=== PATIENT | male | born 1980 | race Caucasian/White ===

== ENCOUNTER 2022-06-04 20:18 | Emergency (ER) | payer MEDICAID ==
[~2022-06-04] VITALS: Ht 165.1 cm; Wt 81.0 kg
[~2022-06-04 20:18] MED LIST: COR3 PO; FURO-151 MT; FURO40TA5 PO; LOSA25TA3 PO; POTA-189 PO; POTA-205 MT
[2022-06-04 21:52] VITALS: BP 102/77
[2022-06-05] MEDS ORDERED: FUROSEMIDE 40MG TABLET PO ONE (00:30)
[2022-06-05] MEDS ORDERED: FURO40TA5 MT (02:42)
== END 2022-06-05 03:05 | disposition home or self-care (01) ==
LOC: ER 20:18
DX: I50.9 Heart failure, unspecified (principal); F14.10 Cocaine abuse, uncomplicated; Z79.899 Other long term (current) drug therapy
CPT/HCPCS: 71045; 93005; 99283

== ENCOUNTER 2022-06-29 13:46 | Inpatient (IN) | payer SELFPAY ==
[~2022-06-29] VITALS: Ht 167.6 cm; Wt 86.2 kg
[~2022-06-29 13:46] MED LIST changes: +FURO40TA5 MT
[2022-06-29 19:02] LABS: BASOPHILS % 0.9 % (0.0-2.0); EOSINOPHILS % 2.5 % (0.0-5.0); HEMATOCRIT. 47.1 % (42.0-52.0); HEMOGLOBIN. 15.3 g/dL (14.0-18.0); LYMPHOCYTES % 17.3 % (20.0-50.0); MEAN CORPUSCULAR HEMOGLOBIN 27.2 pg (28.0-32.0); MEAN PLATELET VOLUME 7.8 fl (7.4-10.4); MONOCYTES % 12.7 % (2.0-8.0); NEUTROPHILS % 66.6 % (40.0-76.0); PLATELET 252 x1000/uL (130-400); RED BLOOD CELL COUNT 5.61 mill/uL (4.7-6.1); RED CELL DISTRIBUTION WIDTH 17.9 % (11.6-14.6)
[2022-06-29 19:08] LABS: CHLORIDE 101 mEq/L (98-107)
[2022-06-29 19:23] LABS: ETHANOL BLOOD < 10 mg/dL
[2022-06-29] MEDS ORDERED: FUROSEMIDE 40MG/4ML VIAL IVP NR (19:30)
[2022-06-29] MEDS ORDERED: POTASSIUM CHLORIDE 20MEQ TABLET SR PO NR (19:45)
[2022-06-29 20:01] LABS: INR 1.1; PROTHROMBIN TIME 12.1 sec (9.6-11.0)
[2022-06-30 04:40] LABS: *AMPHETAMINES SCREEN URINE NEGATIVE (NEGATIVE); *BARBITURATES SCREEN URINE NEGATIVE (NEGATIVE); *BENZODIAZEPINES SCREEN URINE NEGATIVE (NEGATIVE); *COCAINE SCREEN URINE NEGATIVE (NEGATIVE); CANNABINOID URINE SCREEN NEGATIVE (NEGATIVE); METHADONE URINE SCREEN NEGATIVE (NEGATIVE); OPIATES URINE SCREEN NEGATIVE (NEGATIVE); PHENCYCLIDINE URINE SCREEN NEGATIVE (NEGATIVE)
[2022-06-30 09:40] VITALS: BP 109/80
[2022-06-30] MEDS ORDERED: ONDANSETRON HCL 4MG/2ML INJ IV PRN (09:45)
[2022-06-30 12:00] VITALS: BP_SYST 114; BP_SYST 118; BP_DIAS 78; BP_DIAS 80
[2022-06-30] MEDS ORDERED: METOLAZONE 2.5MG TABLET PO NR (13:00)
[2022-06-30] MEDS: FUROSEMIDE 100MG/10ML VIAL IVP SCH ×2 (13:18→18:03)
[2022-06-30] MEDS: POTASSIUM CHLORIDE 20MEQ TABLET SR PO SCH (13:18)
[2022-06-30 14:00] VITALS: BP 116/80
[2022-06-30 16:00] VITALS: BP 117/75
[2022-06-30 18:00] VITALS: BP 118/79
[2022-06-30 20:00] VITALS: BP 115/82
[2022-06-30] MEDS: CARVEDILOL 3.125 MG TABLET PO SCH (20:58)
[2022-07-01] VITALS: BP 140/88
[2022-07-01 04:00] VITALS: BP 127/79
[2022-07-01 08:00] VITALS: BP 123/77
[2022-07-01] MEDS: POTASSIUM CHLORIDE 20MEQ TABLET SR PO SCH (09:24)
[2022-07-01] MEDS: CARVEDILOL 3.125 MG TABLET PO SCH ×2 (09:24→21:00)
[2022-07-01] MEDS: FUROSEMIDE 100MG/10ML VIAL IVP SCH ×2 (09:24→18:24)
[2022-07-01] MEDS: LOSARTAN POTASSIUM 25 MG TABLET PO SCH (09:24)
[2022-07-01] MEDS ORDERED: METOLAZONE 2.5MG TABLET PO NR (11:00)
[2022-07-01 12:00] VITALS: BP 122/75
[2022-07-01 16:00] VITALS: BP 118/77
[2022-07-01 20:00] VITALS: BP 96/63
[2022-07-02] VITALS: BP 90/60
[2022-07-02 04:00] VITALS: BP 99/68
[2022-07-02 08:00] VITALS: BP 91/54
[2022-07-02] MEDS: CARVEDILOL 3.125 MG TABLET PO SCH (08:43)
[2022-07-02] MEDS: LOSARTAN POTASSIUM 25 MG TABLET PO SCH (08:43)
[2022-07-02] MEDS: POTASSIUM CHLORIDE 20MEQ TABLET SR PO SCH (08:57)
[2022-07-02] MEDS: FUROSEMIDE 100MG/10ML VIAL IVP SCH (08:57)
[2022-07-02] MEDS ORDERED: METOLAZONE 2.5MG TABLET PO SCH (09:00)
[2022-07-02 09:49] LABS: CHLORIDE 100 mEq/L (98-107)
[2022-07-02 11:39] VITALS: BP 98/71
[2022-07-02] MEDS ORDERED: METO2.5T2 PO (12:23)
[2022-07-02] MEDS ORDERED: LOSA25TA3 PO (12:23)
[2022-07-02] MEDS ORDERED: FURO80TA87 MT (12:23)
[2022-07-02] MEDS ORDERED: POTA-205 MT (12:23)
[2022-07-02] MEDS ORDERED: COR3 PO (12:23)
[2022-07-02 12:27] VITALS: BP 98/71
[2022-07-02 16:00] VITALS: BP 96/52
[2022-07-02 18:15] LABS: CHLORIDE 97 mEq/L (98-107)
== END 2022-07-02 16:05 | disposition home or self-care (01) | DRG 194 ==
LOC: ER 13:46 → MICUSO 20:41 → EDBEDREQ 20:44 → EDBEDREQTM 20:44 → 7WST 06-30 09:40
PROVIDERS: ADMIT Internal Medicine; ATTEND Internal Medicine
DX: I11.0 Hypertensive heart disease with heart failure (principal); R18.8 Other ascites; I42.9 Cardiomyopathy, unspecified; K74.60 Unspecified cirrhosis of liver; I50.23 Acute on chronic systolic (congestive) heart failure; Z20.822 Contact with and (suspected) exposure to COVID-19; E87.6 Hypokalemia; F10.20 Alcohol dependence, uncomplicated; Z79.899 Other long term (current) drug therapy
CPT/HCPCS: 36415; 71045; 76700; 80048; 80053; 80305; 80320; 83880; 84484; 85025; 87426; 93005; 99285; C9803; J1940; G0480